=== PATIENT | female | born 1980 | race Caucasian/White ===

== ENCOUNTER 2018-09-23 15:42 | Outpatient (CLI) | payer OTHER | END 2018-09-23 23:59 | disposition home or self-care (01) | LOC: CVU 15:42 | PROVIDERS: ATTEND Internal Medicine Cardiovascular Disease | DX: I08.8 Other rheumatic multiple valve diseases (principal); R07.9 Chest pain, unspecified | CPT/HCPCS: 93306 ==

== ENCOUNTER 2019-09-15 14:37 | Outpatient (CLI) | payer OTHER ==
[~2019-09-15 14:37] MED LIST: IBUP200T49 PO
== END 2019-09-15 23:59 | disposition home or self-care (01) ==
LOC: CFH 14:37
PROVIDERS: ATTEND Internal Medicine Cardiovascular Disease
DX: I08.8 Other rheumatic multiple valve diseases (principal); I27.20 Pulmonary hypertension, unspecified
CPT/HCPCS: 93306; 93356

== ENCOUNTER 2019-10-01 11:06 | Day surgery (SDC) | payer OTHER ==
[~2019-10-01] VITALS: Ht 160 cm; Wt 63.6 kg
[2019-10-01] MEDS ORDERED: BENZOCAINE AEROSOL SPRAY 20%, 60ML TP PRN (12:00)
[2019-10-01] MEDS ORDERED: LIDOCAINE 2% VISCOUS, 100ML MM PRN (12:00)
[2019-10-01] MEDS ORDERED: SODIUM CHLORIDE 0.9% 1,000 ML IV ONE (12:00)
[2019-10-01] MEDS ORDERED: PROPOFOL 10 MG/ML, 20ML ONE (15:55)
== END 2019-10-01 15:10 | disposition home or self-care (01) ==
LOC: CACL 11:06
PROVIDERS: ATTEND Internal Medicine Cardiovascular Disease
DX: Q21.1 Atrial septal defect (principal); Z11.59 Encounter for screening for other viral diseases; I27.20 Pulmonary hypertension, unspecified; I34.0 Nonrheumatic mitral (valve) insufficiency; I37.1 Nonrheumatic pulmonary valve insufficiency; I36.1 Nonrheumatic tricuspid (valve) insufficiency
CPT/HCPCS: 36415; 87635; 93312; 93325; J2704

== ENCOUNTER → 2019-10-30 | Outpatient (CLI) | payer OTHER | END | disposition home or self-care (01) | LOC: STAR 16:11 | PROVIDERS: ATTEND Anesthesiology | DX: Z01.812 Encounter for preprocedural laboratory examination (principal); Z20.828 Contact with and (suspected) exposure to other viral communicable diseases | CPT/HCPCS: 36415; 87635 ==

== ENCOUNTER 2019-11-03 07:47 | Day surgery (SDC) | payer OTHER ==
[~2019-11-03] VITALS: Ht 157.5 cm; Wt 73.6 kg
[2019-11-03 08:55] VITALS: BP 123/70
[2019-11-03 09:29] LABS: BASOPHILS # (AUTO) 0.04 x10^3/uL (0-0.1); BASOPHILS % (AUTO) 1 % (0-1); EOSINOPHILS # (AUTO) 0.13 x10^3/uL (0-0.4); EOSINOPHILS % (AUTO) 2 % (1-7); LYMPHOCYTES % (AUTO) 42 % (22-44); MD NO; MEAN CORPUSCULAR HEMOGLOBIN 29.7 pg (27.0-34.8); MEAN CORPUSCULAR HGB CONC 32.7 g/dL (32.4-35.8); MEAN CORPUSCULAR VOLUME 90.9 fL (80-100); MONOCYTES # (AUTO) 0.57 x10^3/uL (0.2-0.8); MONOCYTES % (AUTO) 8 % (2-9); NEUTROPHILS # (AUTO) 3.36 x10^3/uL (1.8-6.8); NEUTROPHILS % (AUTO) 47 % (42-75); PLATELET COUNT 258 x10^3/uL (130-400); RED BLOOD COUNT 4.57 x10^6/uL (3.82-5.3); RED CELL DISTRIBUTION WIDTH 13.2 % (9.6-15.2)
[2019-11-03 09:35] LABS: ANION GAP 5 mmol/L (5-15); CALCIUM 8.5 mg/dL (8.5-10.1); CHLORIDE 109 mmol/L (98-107); CREATININE 0.54 mg/dL (0.55-1.02)
[2019-11-03] MEDS ORDERED: MIDAZOLAM 1 MG/ML, 2ML ONE (09:47)
[2019-11-03] MEDS ORDERED: FENTANYL PF 100 MCG/2ML ONE (09:47)
[2019-11-03] MEDS ORDERED: HEPARIN 1,000 UNITS/ML, 10ML ONE (09:48)
[2019-11-03] MEDS ORDERED: LIDOCAINE 2%, 20ML ONE (09:50)
[2019-11-03] MEDS ORDERED: SUGAMMADEX 200 MG/2 ML IVPush ONE (10:58)
[2019-11-03] MEDS ORDERED: CEFAZOLIN 1,000 MG ONE (11:10)
[2019-11-03] MEDS ORDERED: PROPOFOL 10 MG/ML, 20ML ONE (11:10)
[2019-11-03] MEDS ORDERED: DEXAMETHASONE 4 MG/ML, 1ML ONE (11:10)
[2019-11-03] MEDS ORDERED: ROCURONIUM 10MG/ML,5ML ONE (11:10)
[2019-11-03] MEDS ORDERED: ONDANSETRON 2MG/ML, 2ML ONE (11:10)
[2019-11-03] MEDS ORDERED: SUCCINYLCHOLINE 20 MG/ML, 10ML ONE (11:10)
== END 2019-11-03 14:00 | disposition home or self-care (01) ==
LOC: CACL 07:47
PROVIDERS: ATTEND Internal Medicine Cardiovascular Disease
DX: Q21.1 Atrial septal defect (principal); I34.0 Nonrheumatic mitral (valve) insufficiency; I51.7 Cardiomegaly
CPT/HCPCS: 36415; 80048; 84703; 85025; 93005; 93312; 93321; 93325; J0330; J0690; J1100; J1644; J2250; J2405; J2704; J3010

== ENCOUNTER → 2019-12-31 | Outpatient (CLI) | payer OTHER | END | disposition home or self-care (01) | LOC: STAR 15:51 | PROVIDERS: ATTEND Anesthesiology | DX: Z20.828 Contact with and (suspected) exposure to other viral communicable diseases (principal) | CPT/HCPCS: 87635 ==

== ENCOUNTER 2020-01-05 06:29 | Observation (INO) | payer OTHER ==
[~2020-01-05] VITALS: Ht 160 cm; Wt 71.6 kg
[2020-01-05] MEDS ORDERED: SODIUM CHLORIDE 0.9% 1,000 ML IV ONE (07:00)
[2020-01-05] MEDS ORDERED: PROPOFOL 50 ML ONE (07:06)
[2020-01-05] MEDS ORDERED: MIDAZOLAM 1 MG/ML, 2ML ONE (07:06)
[2020-01-05] MEDS ORDERED: FENTANYL PF 250 MCG/5ML ONE (07:06)
[2020-01-05 07:16] LABS: BASOPHILS % (AUTO) 1 % (0-1); EOSINOPHILS % (AUTO) 2 % (1-7); LYMPHOCYTES % (AUTO) 37 % (22-44); MD NO; MEAN CORPUSCULAR HEMOGLOBIN 30.4 pg (27.0-34.8); MEAN CORPUSCULAR HGB CONC 33.8 g/dL (32.4-35.8); MEAN PLATELET VOLUME 8.1 fL (7.4-10.4); MONOCYTES % (AUTO) 6 % (2-9); NEUTROPHILS % (AUTO) 55 % (42-75); PLATELET COUNT 260 x10^3/uL (130-400); RED BLOOD COUNT 4.55 x10^6/uL (3.82-5.3)
[2020-01-05 07:26] LABS: ANION GAP 5 mmol/L (5-15); CALCIUM 8.6 mg/dL (8.5-10.1); CHLORIDE 110 mmol/L (98-107)
[2020-01-05] MEDS ORDERED: LIDOCAINE 1%, 20ML ONE (07:30)
[2020-01-05 07:32] LABS: CREATININE 0.58 mg/dL (0.55-1.02)
[2020-01-05] MEDS ORDERED: CLOPIDOGREL 300 MG TABLET ONE (09:04)
[2020-01-05] MEDS ORDERED: hydrALAzine 20 MG/ML, 1ML IVPush PRN (09:30)
[2020-01-05] MEDS: ASPIRIN 81 MG TABLET EC PO SCH (09:30)
[2020-01-05] MEDS: SODIUM CHLORIDE 0.9% 1,000 ML IV SCH ×2 (09:30→18:39)
[2020-01-05] MEDS ORDERED: ONDANSETRON 2MG/ML, 2ML IVPush PRN (09:30)
[2020-01-05] MEDS ORDERED: ACETAMINOPHEN 650 MG SUPP PR PRN (09:30)
[2020-01-05] MEDS ORDERED: LABETALOL 20 MG/4 ML IVPush PRN (09:30)
[2020-01-05] MEDS ORDERED: ACETAMINOPHEN 650 MG/20.3 ML UDC PO PRN (09:30)
[2020-01-05 15:29] VITALS: BP 100/63
[2020-01-05] MEDS ORDERED: ACETAMINOPHEN 325 MG TABLET PO PRN (15:30)
[2020-01-05] MEDS ORDERED: CLOPIDOGREL 300 MG TABLET PO ONE (21:00)
[2020-01-05 21:44] VITALS: BP 95/60
[2020-01-06 02:06] VITALS: BP 100/61
[2020-01-06] MEDS: SODIUM CHLORIDE 0.9% 1,000 ML IV SCH (05:30)
[2020-01-06] MEDS ORDERED: ONDANSETRON 2MG/ML, 2ML ONE (07:24)
[2020-01-06] MEDS ORDERED: ROCURONIUM 10 MG/ML,10ML ONE (07:24)
[2020-01-06] MEDS ORDERED: DEXAMETHASONE 4 MG/ML, 1ML ONE (07:24)
[2020-01-06] MEDS ORDERED: CEFAZOLIN 1,000 MG ONE (07:24)
[2020-01-06] MEDS ORDERED: SUCCINYLCHOLINE 20 MG/ML, 10ML ONE (07:24)
[2020-01-06] MEDS ORDERED: ASPI81TA45 PO (08:13)
[2020-01-06] MEDS ORDERED: CLOP75TA PO (08:13)
[2020-01-06] MEDS ORDERED: ACET325T26 PO (08:13)
[2020-01-06 08:45] VITALS: BP 103/68
[2020-01-06] MEDS ORDERED: CLOPIDOGREL 75 MG TABLET PO SCH (09:00)
[2020-01-06] MEDS: ASPIRIN 81 MG TABLET EC PO SCH (09:44)
== END 2020-01-06 12:00 | disposition home or self-care (01) ==
LOC: CACL 06:29 → ORIP 09:11 → 5SO 15:12 → DCLOUNGE 01-06 11:35
PROVIDERS: ADMIT Internal Medicine Cardiovascular Disease; ATTEND Internal Medicine Cardiovascular Disease
DX: I63.9 Cerebral infarction, unspecified (principal); Q21.1 Atrial septal defect; Z79.899 Other long term (current) drug therapy
CPT/HCPCS: 36415; 76937; 80048; 84703; 85014; 85018; 85025; 85347; 93005; 93308; 93312; 93325; 93580; C1760; C1769; C1817; C1894; G0378; J0330; J0690; J1100; J2250; J2405; J2704; J3010; J3490

== ENCOUNTER → 2020-01-29 | Outpatient (CLI) | payer OTHER ==
[~2020-01-29] MED LIST changes: +ACET325T26 PO; +ACETAMINOPHEN 325 MG TABLET ONE; +ASPI81TA45 PO; +CLOP75TA PO; +PLEASE ENTER HEIGHT AND WEIGHT MC SCH
== END | disposition home or self-care (01) ==
LOC: CVU 07:47
PROVIDERS: ATTEND Internal Medicine Cardiovascular Disease
DX: Z01.810 Encounter for preprocedural cardiovascular examination (principal); I08.8 Other rheumatic multiple valve diseases; R06.02 Shortness of breath; I65.29 Occlusion and stenosis of unspecified carotid artery; Q21.1 Atrial septal defect
CPT/HCPCS: 93306

== ENCOUNTER → 2020-07-05 | Outpatient (CLI) | payer OTHER ==
[~2020-07-05] MED LIST changes: -ACETAMINOPHEN 325 MG TABLET ONE; -PLEASE ENTER HEIGHT AND WEIGHT MC SCH
== END | disposition home or self-care (01) ==
LOC: STAR 15:52
PROVIDERS: ATTEND Internal Medicine Cardiovascular Disease
DX: Z20.822 Contact with and (suspected) exposure to COVID-19 (principal)
CPT/HCPCS: U0003; U0005

== ENCOUNTER → 2020-08-05 | Outpatient (CLI) | payer OTHER | END | disposition home or self-care (01) | LOC: CVU 08:06 | PROVIDERS: ATTEND Internal Medicine Cardiovascular Disease | DX: I08.8 Other rheumatic multiple valve diseases (principal); R00.2 Palpitations; Q21.1 Atrial septal defect | CPT/HCPCS: 93306 ==